=== PATIENT | male | born 1960 | race Caucasian/White ===

== ENCOUNTER 2017-06-16 21:44 | Emergency (ER) | payer OTHER ==
[2017-06-16 21:53] VITALS: BP 134/83; PULSE 74; TEMP 97.4; BMI 29.6
[2017-06-16] MEDS ORDERED: ACETAMINOPHEN 325 MG TABLET (FP) PO ONE (22:40)
[2017-06-16] MEDS ORDERED: ACETAMINOPHEN 325 MG TABLET (FP) ONE (22:45)
--- NOTE | 2017-06-16 22:48 | PDOC ---
History of Present Illness - General Chief Complaint: Injury Stated Complaint: LH 1ST FINGER INJURY Time Seen by Provider: 06/16/17 22:01 - History of Present Illness Initial Comments: This 57-year-old man with a history of [place] vasculitis and on chronic steroid therapy presents with left thumb injury: Just prior to presentation when patient was using his snowblower, he noted acute pain in his left thumb. Patient was clearing the snowblower blades of snow when he felt sudden sharp pain at the base of the thumb. Motor was not operating and blades were not moving; no laceration/avulsion injury to the skin was sustained. Patient believes that some may have been forcibly hyperextended in someway. In the past , the patient apparently injured both thumbs while skiing: States that he skied over his thumbs. Patient is left-handed dominant. No other injury sustained Past History - Past Medical History Allergies/Adverse Reactions: Allergies Allergy/AdvReac Type Severity Reaction Status Date / Time NSAIDS (Non-Steroidal Allergy Verified 06/16/17 21:46 Anti-Inflamma Home Medications: Ambulatory Orders Budesonide [Rhinocort Allergy] 8.43 ml NS PRN PRN 06/16/17 Cetirizine HCl [Zyrtec -] 10 mg PO DAILY 06/16/17 Cholecalciferol (Vitamin D3) [Vitamin D3] 1,000 unit PO DAILY 06/16/17 Cyanocobalamin [Vitamin B12 -] 1,000 mcg PO DAILY 06/16/17 Fluticasone/Vilanterol [Breo Ellipta 200-25 Mcg INH] 1 each IH DAILY 06/16/17 Multivitamins [Tab-A-Vit -] 1 tab PO DAILY 06/16/17 Prednisone 10 mg PO DAILY 06/16/17 COPD: No Other medical history: CHURG/GLENNA SYNDROME - Surgical History GI Surgery: Yes (TOTAL COLECTOMY) - Suicide/Smoking/Psychosocial Hx Smoking History: Never smoked Review of Systems - Review of Systems Able to Perform ROS?: Yes Comments:: 12 point review of systems is negative except for what is noted in the history of present illness *Physical Exam - Vital Signs Last Vital Signs Temp Pulse Resp BP Pulse Ox 97.4 F L 74 16 134/83 98 06/16/17 21:52 06/16/17 21:52 06/16/17 21:52 06/16/17 21:52 06/16/17 21:52 - Physical Exam Comments: GENERAL: Adult male, alert and oriented 3, in no acute distress EXTREMITIES: Left upper extremity-thumb: Mild edema at the MCP joint with tenderness at the medial aspect; pain with lateral and medial movement No pain with hyperextension or flexion; no sensory deficit No tenderness/edema/deformity of distal digit; fingertip/nail bed intact No evidence of ecchymosis/laceration/avulsion injury NEUROLOGICAL: Cranial nerves II through XII grossly intact. Normal speech. No focal neurological deficits. MUSCULOSKELETAL: Back non-tender to palpation, no CVA tenderness SKIN: Warm, Dry, normal turgor, no rashes or lesions noted. ED Treatment Course - RADIOLOGY Radiology Studies Ordered: Category Date Time Status FINGER(S) LEFT [RAD] Stat Radiology 06/16/17 22:14 Taken HAND- LEFT [RAD] Stat Radiology 06/16/17 22:14 Taken Progress Note - Progress Note Progress Note: Radiology reading(Dr. Sanchez) of left hand/left thumb x-ray reveals no evidence of acute fracture or dislocation Medical Decision Making - Medical Decision Making Clinical presentation most consistent with sprain of left thumb MCP joint. Tenderness is present more in the radial aspect of the joint rather than the more common ulnar ligament sprain Thumb spica splint applied using Ortho-Glass material; secured with Amadeo wraps. Neurovascular function intact after placement of the splint Patient will be discharged with advice to elevate (sling applied), ice to base of thumb as much as possible over the next 2 days. He should follow-up with hand surgeon within the next 2-3 days and referral information for /Dr. Morgan given to the patient. Meanwhile, Tylenol can be used as needed for pain and first dose of 650 mg acetaminophen administered in the ER *DC/Admit/Observation/Transfer Diagnosis at time of Disposition: Left thumb sprain Qualifiers: Encounter type: initial encounter Sprain of finger site: metacarpophalangeal joint Qualified Code(s): S63.642A - Sprain of metacarpophalangeal joint of left thumb, initial encounter - Discharge Dispostion Disposition: HOME Condition at time of disposition: Stable - Referrals Referrals: Ifeanyi Jin [Primary Care Provider] - Roberto Fenton MD [Staff Physician] - Call tomorrow - Patient Instructions Printed Discharge Instructions: DI for Ulnar Collateral Ligament Sprain of Thumb Additional Instructions: Ice/elevation as much as possible for the next [address] in [address] until seen by orthopedics Tylenol as needed for pain Follow-up with hand surgeons (Drs. Fenton/Eddie) within the next 5 days - Post Discharge Activity
== END 2017-06-16 22:58 | disposition home or self-care (01) ==
LOC: FER 21:44
DX: S63.642A Sprain of metacarpophalangeal joint of left thumb, initial encounter (principal); X58.XXXA Exposure to other specified factors, initial encounter; Y93.89 Activity, other specified; Y92.410 Unspecified street and highway as the place of occurrence of the external cause; M30.1 Polyarteritis with lung involvement [Churg-Strauss]
CPT/HCPCS: 73130-TC-LR-FY; 73140-TC-LT-FY; 99282-25

== ENCOUNTER 2018-08-05 08:08 | Day surgery (SDC) | payer OTHER ==
[2018-08-04 10:31] VITALS: BMI 29.6
[2018-08-05] MEDS ORDERED: MIDAZOLAM HCL 2 MG/2 ML SINGLE DOSE VIAL ONE ×2 (09:08→09:24)
[2018-08-05] MEDS ORDERED: BUPIVACAINE HCL/PF 2.5 MG/ML - 30 ML VIAL IJ ONE (09:19)
[2018-08-05] MEDS ORDERED: ROPIVACAINE HCL 0.5% 30ML VIAL ONE (09:24)
[2018-08-05] MEDS ORDERED: ONDANSETRON 4 MG/2 ML VIAL IVPUSH PRN (11:16)
[2018-08-05] MEDS ORDERED: oxyCODONE HCL 5 MG TABLET PO PRN ×2 (11:16)
[2018-08-05] MEDS ORDERED: LACTATED RINGERS SOLUTION 1,000 ML IV SCH (11:30)
--- NOTE | 2018-08-05 11:51 | OP ---
DATE OF OPERATION: 08/05/2018 SURGEON: Emanuel Grant MD [employer] CLEANER: DARIAN Chatterjee PREOPERATIVE DIAGNOSIS: Left Achilles tendon rupture. POSTOPERATIVE DIAGNOSIS: Left Achilles tendon rupture. PROCEDURE: Left Achilles repair. FINDINGS: Transverse tear proximal third of Achilles tendon with retraction. PROCEDURE: Informed consent was obtained. The patient was taken to the operating room where the left lower extremity was prepped and draped in a sterile fashion. A tourniquet was placed on the upper leg, inflated to 300 mmHg. With the patient in the prone position, an incision was made posteriorly over the Achilles tendon. This measured approximately 12 cm in length. The proximal and distal portions were identified. The necrotic tissue on the ends was debrided and a Raeford interlocking stitch was placed on the proximal and distal portions using a number-5 Ethibond. These were connected through the central portion of the tendon and then oversewn with number-2 FiberWire [id number] interrupted sutures. The wound was irrigated with copious amounts of irrigation throughout the procedure. A layered closure of 2-0 Vicryl and eriberto was performed. A sterile dressing and a splint was placed. The patient was transferred to the recovery room without complication. The PA listed above was present and assisted at surgery. Their presence was absolutely medically necessary for the completion of the procedure. They helped hold the arthroscopy, pass instruments (and implants when indicated) and the procedure could not have been completed without their assistance. EMANUEL GRANT M.D. [id number]
[2018-08-05 13:54] VITALS: BP 118/70; PULSE 58; TEMP 97.9
== END 2018-08-05 13:30 | disposition home or self-care (01) ==
LOC: FASU 08:08
PROVIDERS: ATTEND Orthopaedic Surgery
PROC: 0LQP0ZZ Repair Left Lower Leg Tendon, Open Approach (ICD-10-PCS; principal; 2018-08-05 10:18)
DX: S86.012A Strain of left Achilles tendon, initial encounter (principal); X58.XXXA Exposure to other specified factors, initial encounter; Y93.9 Activity, unspecified; Y92.9 Unspecified place or not applicable
CPT/HCPCS: 94760